=== PATIENT | male | born 1970 | race Two or more races ===

== ENCOUNTER 2016-05-19 11:47 | Emergency (ER) | payer OTHER ==
--- NOTE | ~2016-05-19 | EKG ---
PATIENT: JAZMIN THAYER UNIT #: [id number] Ventricular Rate: 91 BPM Atrial Rate: 91 BPM P-R Interval: 194 ms QRS Duration: 90 ms Q-T Interval: 374 ms QTC Calculation(Bezet): 460 ms P [place]: 68 degrees Calculated R [place]: 23 degrees Calculated T [place]: 42 degrees Diagnosis Line: Normal sinus rhythm Diagnosis Line: Nonspecific T wave abnormality Diagnosis Line: Prolonged QT Diagnosis Line: Abnormal ECG Diagnosis Line: Diagnosis Line: Confirmed by BRENNA JOLLY MD ([id number]) on 05/19/2016 Diagnosis Line: 10:43:28 PM INTERPRETING MD: SHANAE RODRIGUEZ
--- NOTE | ~2016-05-19 | CT16 ---
[facility] A Service [facility] RADIOLOGY TEXT RESULTS PATIENT: JAZMIN THAYER LOCATION: [facility] : 70 UNIT #: [id number] AGE: [address]: Abdias Espinoza MD SEX: M ORDER DR: [id number] [facility] [address] [place], [place] [address] [id number] E MR#: [id number] Acc #: [id number] NAME: JAZMIN THAYER : 1970 SEX: M STUDY DATE/TIME: 05/19/2016 12:25 UNIT: [facility] ROOM: STUDY DESCRIPTION: CT Angio Chest for PE Attending Physician: Abdias Espinoza M.D. Ordering Physician: Abdias Espinoza M.D. Primary Care Physician: Joe Jean Baptiste M.D. MEDICAL IMAGING REPORT This report is preliminary unless electronic signature is present EXAM Chest CT-A, 05/19/2016. HISTORY Chest pain, dizziness, nausea and vomiting, which started yesterday. Pain predominantly on the right side. Pain rates 8/10. TECHNIQUE Axial images were obtained through the chest following intravenous contrast administration. 3-D reformats were obtained. This CT exam was performed with one or more of the following radiation dose reduction techniques: automatic exposure control, adjustment of mA and/or kV according to patient size, and iterative reconstruction. COMPARISON No comparison. FINDINGS There is no pulmonary embolism or aortic dissection. There is no pleural or pericardial effusion. There is no adenopathy. There is gynecomastia. There is some mild atelectasis in the lower lobes and lingula. Lungs otherwise are clear. No pneumothorax. The upper abdomen is unremarkable. IMPRESSION 1. No pulmonary embolus or aortic dissection. 2. Mild atelectasis in the lower lobes and lingula. Otherwise, no active disease. [facility] A Service [facility] RADIOLOGY TEXT RESULTS PATIENT: JAZMIN THAYER LOCATION: [facility] : 70 UNIT #: [id number] AGE: [address]: Abdias Espinoza MD SEX: M ORDER DR: Dictated by... Freddy Schneider Jr., M.D. THIS IS AN ELECTRONICALLY VERIFIED REPORT Freddy Schneider Jr., M.D. at 05/20/2016 10:01 AM ANDREW/brittnee TD: 05/19/2016 13:55 JOB #: [id number] MEDICAL IMAGING REPORT Page 1 of 1 COPY
--- NOTE | ~2016-05-19 | CR72 ---
"[facility] A Service [facility] RADIOLOGY TEXT RESULTS PATIENT: JAZMIN THAYER LOCATION: [facility] : 70 UNIT #: [id number] AGE: [address]: Abdias Espinoza MD SEX: M ORDER DR: [id number] [facility] [address] [place], [place] [address] [id number] E MR#: [id number] Acc #: [id number] NAME: JAZMIN THAYER. : 1970 SEX: M STUDY DATE/TIME: 05/19/2016 11:14 UNIT: [facility] ROOM: STUDY DESCRIPTION: CR Chest Single View Portable Attending Physician: Abdias Espinoza M.D. Ordering Physician: Abdias Espinoza M.D. Primary Care Physician: Joe Jean Baptiste M.D. MEDICAL IMAGING REPORT This report is preliminary unless electronic signature is present EXAM Portable chest INDICATIONS 45-year-old male with chest pain nausea and vomiting today. | COMPARISON 03/02/2015 FINDINGS The lungs are well expanded. No acute infiltrate. Heart size normal. IMPRESSION No active disease Dictated by... Twan Laura M.D. THIS IS AN ELECTRONICALLY VERIFIED REPORT Twan Laura M.D. at 05/20/2016 8:57 AM JASE/nathalia TD: 05/19/2016 13:00 JOB #: [id number] MEDICAL IMAGING REPORT Page 1 of 1 COPY"
[2016-05-19 10:06] LABS: BASOPHIL# 0.1 X10e3 (0-0.3); BASOPHIL% 0.7 % (0-2.5); EOSINOPHIL# 1.4 X10e3 (0-0.7); EOSINOPHIL% 13.7 % (0.0-7.0); HEMATOCRIT 39.2 % (38.0-50.0); LYMPHOCYTE# 1.9 X10e3 (1.0-3.5); LYMPHOCYTE% 18.8 % (17.0-45.0); MEAN CELL VOLUME 86.1 FL (83-96); MEAN CORPUSCULAR HEMOGLOBIN 28.5 PG (28-34); MEAN CORPUSCULAR HGB CONC 33.1 g/dL (30-36); MONOCYTE# 0.5 X10e3 (0-1.0); MONOCYTE% 5.2 % (3.0-12.0); NEUTROPHIL# 6.3 X10e3 (1.5-7.1); NEUTROPHIL% 61.6 % (40-75); PLATELET COUNT 278 X10e3 (140-420); RED BLOOD COUNT 4.55 X10e (3.90-5.60); RED CELL DISTRIBUTION WIDTH 13.9 % (11.0-15.5); WHITE BLOOD COUNT 10.3 X10e3 (4.0-10.5)
[2016-05-19 10:09] LABS: DIFF IND NO
[2016-05-19 10:17] LABS: POC - CKMB <1.0 ng/mL (0.0-7.9); POC - TROPONIN <0.05 ng/mL (<=0.05)
[2016-05-19 10:31] LABS: ALBUMIN SERUM 3.8 g/dL (3.5-5.0); BILIRUBIN, DIRECT 0.1 mg/dL (0.0-0.2); BILIRUBIN,INDIRECT 0.3 mg/dL (0.0-0.9); BILIRUBIN,TOTAL 0.4 mg/dL (0.2-2.0); CALCIUM SERUM 9.2 mg/dL (8.4-10.2); CREATININE SERUM 0.6 mg/dL (0.6-1.4); GLOM FILT RATE Estimated 121.5 mL/min (>60); POTASSIUM 4.1 mmol/L (3.5-5.1); PROTEIN TOTAL SERUM 7.3 g/dL (6.0-8.3)
[2016-05-19 11:18] LABS: URINE SOURCE CLEAN CATCH
[2016-05-19 11:37] LABS: URINE APPEARANCE CLEAR; URINE BILIRUBIN NEG (NEG); URINE BLOOD NEG (NEG); URINE COLOR YELLOW; URINE GLUCOSE >1000 MG/DL (NEG); URINE KETONE TRACE (NEG); URINE LEUKOCYTE ESTERASE NEG (NEG); URINE NITRATE NEG (NEG); URINE PROTEIN NEG (NEG); URINE SPECIFIC GRAVITY 1.038 (1.003-1.035)
[2016-05-19 11:42] LABS: CULTURE INDICATED? NO
[2016-05-19 11:47] LABS: POC - CKMB <1.0 ng/mL (0.0-7.9); POC - TROPONIN <0.05 ng/mL (<=0.05)
== END 2016-05-19 13:30 | disposition home or self-care (01) ==
LOC: CED 11:47
PROVIDERS: Emergency Medicine
DX: M25.511 Pain in right shoulder (principal); R11.2 Nausea with vomiting, unspecified; R42 Dizziness and giddiness
CPT/HCPCS: 36415; 71010; 71275; 80048; 80076; 81003; 82553; 84484; 85025; 93005; 96361; 96374; 99284; J2405; Q9967